=== PATIENT | male | born 1995 | race Caucasian/White ===

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

== ENCOUNTER 2017-07-05 15:44 | Emergency (ER) | payer OTHER ==
[2017-07-05] MEDS ORDERED: ONDANSETRON 4 MG/2 ML VIAL IVP ONE (15:50)
[2017-07-05] MEDS ORDERED: NS 1,000 ML IV ONE (15:50)
--- NOTE | 2017-07-05 15:55 | EDPHY ---
H & P Time Seen by Provider: 07/05/17 15:45 HPI/ROS: CHIEF COMPLAINT: Overdose HISTORY OF PRESENT ILLNESS: The patient is a 22-year-old man who was brought in by EMS. When they arrived he was apneic the. His friends stated that he was is using heroin, cocaine and alcohol. He has black tar heroin and a spoon in his pocket. EMS gave him 2 mg intranasal Narcan and then 4 mg IV Narcan after which she awoke. They suctioned a large amount of food out of his mouth. It is not clear whether not he aspirated. He did not vomit. Currently the patient is without complaints. REVIEW OF SYSTEMS: Constitutional: See HPI EENTM: denies: blurred vision, double vision, nose congestion Respiratory: See HPI Cardiac: denies: chest pain, irregular heart rate, lightheadedness, palpitations Gastrointestinal/Abdominal: denies: abdominal pain, diarrhea, nausea, vomiting, blood streaked stools Genitourinary: denies: dysuria, frequency, hematuria, pain Musculoskeletal: denies: joint pain, muscle pain Skin: denies: lesions, rash, jaundice, bruising Neurological: See HPI now denies: headache, numbness, paresthesia, tingling, dizziness, weakness Hematologic/Lymphatic: denies: blood clots, easy bleeding, easy bruising Immunologic/allergic: denies: HIV/AIDS, transplant EXAM: GENERAL: Well-appearing, thin HEAD: Atraumatic, normocephalic. EYES: Pupils equal round and reactive to light, extraocular movements intact, sclera anicteric, conjunctiva are normal. ENT: TMs normal, nares patent, oropharynx clear without exudates. Moist mucous membranes. NECK: Normal range of motion, supple without lymphadenopathy or JVD. LUNGS: Breath sounds clear to auscultation bilaterally and equal. No wheezes rales or rhonchi. HEART: Regular rate and rhythm without murmurs, rubs or gallops. ABDOMEN: Soft, nontender, normoactive bowel sounds. No guarding, no rebound. No masses appreciated. BACK: No CVA tenderness, no spinal tenderness, step-offs or deformities EXTREMITIES: Normal range of motion, no pitting or edema. No clubbing or cyanosis. NEUROLOGICAL: Cranial nerves II through XII grossly intact. Normal speech, normal gait. 5/5 strength, normal movement in all extremities, normal sensation PSYCH: Alert, slightly confused SKIN: Warm, dry, normal turgor, no visible rashes or lesions. Source: Patient Exam Limitations: No limitations - Medical/Surgical History Hx Asthma: No Hx Chronic Respiratory Disease: No Hx Diabetes: No Hx Cardiac Disease: No Hx Renal Disease: No Hx Cirrhosis: No Hx Alcoholism: No Hx HIV/AIDS: No Hx Splenectomy or Spleen Trauma: No Other PMH: heroin use - Family History Significant Family History: No pertinent family hx - Social History Smoking Status: Current every day smoker Alcohol Use: Heavy Drug Use: Cocaine, Heroin, Marijuana Constitutional: Initial Vital Signs Temperature (C) 36.6 C 07/05/17 16:00 Heart Rate 121 H 07/05/17 16:00 Respiratory Rate 16 07/05/17 16:00 Blood Pressure 130/86 H 07/05/17 16:00 O2 Sat (%) 100 07/05/17 16:00 O2 Delivery Mode Room Air O2 (L/minute) 2 Allergies/Adverse Reactions: No Known Allergies Allergy (Unverified 11/11/16 14:37) Home Medications: Medication Instructions Recorded Ondansetron Odt [Zofran Odt 4 mg 4 mg PO Q4 PRN #14 tab 11/11/16 (RX)] chlordiazePOXIDE HCL 25 mg PO Q3-4PRN PRN #14 capsule 11/11/16 [Chlordiazepoxide HCl] clonIDINE [Catapres (*)] 0.1 mg PO BID #5 tab 11/11/16 Medical Decision Making ED Course/Re-evaluation: 6:30 p.m. I checked on the patient several times. He is easily arousable. He is saturating 100% on nasal cannula. 7:20 p.m. the patient continues to do well. He is awake and alert. He has been seen at a Suboxone clinic in [place] previously and would like to return there. He is asking for Librium to get him through until he can go there tomorrow. I believe that this is reasonable. He agrees not to drink alcohol while he is taking benzos. Differential Diagnosis: Partial list of the Differential diagnosis considered include but were not limited to; heroin abuse, polysubstance abuse, withdrawal and although unlikely based on the history and physical exam, I also considered head injury, infection, salt. I discussed these differential diagnoses and the plan with the patient as well as the usual and expected course. The patient understands that the diagnosis is provisional and that in medicine we are not always correct and that further workup is often warranted. Usual and customary warnings were given. All of the patient's questions were answered. The patient was instructed to return to the emergency department should the symptoms at all worsen or return, otherwise to followup with the physician as we discussed. - Data Points Laboratory Results: Laboratory Results 07/05/17 16:13 07/05/17 16:13 07/05/17 07/05/17 07/05/17 19:25 16:13 16:13 WBC 8.97 10^3/uL 10^3/uL (3.80-9.50) RBC 4.34 10^6/uL L 10^6/uL (4.40-6.38) Hgb 14.1 g/dL g/dL (13.7-17.5) Hct 38.6 % L % (40.0-51.0) MCV 88.9 fL fL (81.5-99.8) MCH 32.5 pg pg (27.9-34.1) MCHC 36.5 g/dL g/dL (32.4-36.7) RDW 11.4 % L % (11.5-15.2) Plt Count 204 10^3/uL 10^3/uL (150-400) MPV 8.8 fL fL (8.7-11.7) Neut % (Auto) 74.6 % H % (39.3-74.2) Lymph % (Auto) 17.6 % % (15.0-45.0) [place] % (Auto) 6.6 % % (4.5-13.0) Eos % (Auto) 0.7 % % (0.6-7.6) Baso % (Auto) 0.2 % L % (0.3-1.7) Nucleat RBC Rel Count 0.0 % % (0.0-0.2) Absolute Neuts (auto) 6.69 10^3/uL H 10^3/uL (1.70-6.50) Absolute Lymphs (auto) 1.58 10^3/uL 10^3/uL (1.00-3.00) Absolute Monos (auto) 0.59 10^3/uL 10^3/uL (0.30-0.80) Absolute Eos (auto) 0.06 10^3/uL 10^3/uL (0.03-0.40) Absolute Basos (auto) 0.02 10^3/uL 10^3/uL (0.02-0.10) Absolute Nucleated RBC 0.00 10^3/uL 10^3/uL (0-0.01) Immature Gran % 0.3 % % (0.0-1.1) Immature Gran # 0.03 10^3/uL 10^3/uL (0.00-0.10) Sodium 136 mEq/L mEq/L (134-144) Potassium 4.9 mEq/L mEq/L (3.5-5.2) Chloride 97 mEq/L mEq/L (97-110) Carbon Dioxide 20 mEq/l L mEq/l (22-31) Anion Gap 19 mEq/L H mEq/L (8-16) BUN 17 mg/dL mg/dL (7-23) Creatinine 1.1 mg/dL mg/dL (0.7-1.3) Estimated GFR > 60 Glucose 173 mg/dL H mg/dL (70-100) Calcium 8.7 mg/dL mg/dL (8.5-10.4) Specimen Hemolysis 158 Urine Opiates Screen NON-NEGATIVE H (NEGATIVE) Urine Barbiturates NEGATIVE (NEGATIVE) Ur Phencyclidine Scrn NEGATIVE (NEGATIVE) Ur Amphetamine Screen NEGATIVE (NEGATIVE) U Benzodiazepines Scrn NON-NEGATIVE H (NEGATIVE) Urine Cocaine Screen NON-NEGATIVE H (NEGATIVE) U Marijuana (THC) Screen NON-NEGATIVE H (NEGATIVE) Ethyl Alcohol 14 mg/dL H mg/dL (0-10) Medications Given: Discontinued Medications Chlordiazepoxide (Librium 25 Mg Prepack#6) 1 btl TAKEHOME EDNOW ONE Stop: 07/05/17 19:25 Last Admin: 07/05/17 19:29 Dose: 1 btl Sodium Chloride (Ns) 1,000 mls @ 0 mls/hr IV EDNOW ONE; Wide Open PRN Reason: Protocol Stop: 07/05/17 15:51 Last Admin: 07/05/17 16:14 Dose: 1,000 mls Ondansetron HCl (Zofran) 4 mg IVP EDNOW ONE Stop: 07/05/17 15:51 Last Admin: 07/05/17 16:14 Dose: 4 mg Departure - Departure Disposition: Home, Routine, Self-Care Clinical Impression: Cocaine abuse, Alcohol abuse Heroin overdose Qualifiers: Encounter type: initial encounter Injury intent: accidental or unintentional Qualified Code(s): T40.1X1A - Poisoning by heroin, accidental (unintentional), initial encounter Condition: Fair Instructions: Chlordiazepoxide/Clidinium (By mouth), Cocaine Abuse (ED), Narcotic Abuse (ED), Abuse of Alcohol (ED) Referrals: Patient,NotPresent [Primary Care Provider] - As per Instructions [facility],. [Clinic] - As per Instructions
[2017-07-05 16:20] LABS: % IMMATURE GRANULYOCYTES 0.3 % (0.0-1.1); ABSOLUTE IMMATURE GRANULOCYTES 0.03 10^3/uL (0.00-0.10); ADD DIFF? NO; ADD MORPH? NO; ADD SCAN? NO; ATYPICAL LYMPHOCYTE FLAG 0 (0-99); FRAGMENT RBC FLAG 10 (0-99); HEMATOCRIT 38.6 % (40.0-51.0); HEMOGLOBIN 14.1 g/dL (13.7-17.5); LEFT SHIFT FLG 0 (0-99); LIPEMIA HEMOLYSIS FLAG 90 (0-99); MEAN CELL HEMOGLOBIN 32.5 pg (27.9-34.1); MEAN CELL HEMOGLOBIN CONCENTR. 36.5 g/dL (32.4-36.7); MEAN CELL VOLUME 88.9 fL (81.5-99.8); MEAN PLATELET VOLUME 8.8 fL (8.7-11.7); PLATELET CLUMPS FLAG 20 (0-99); PLATELET COUNT 204 10^3/uL (150-400); RED BLOOD CELL COUNT 4.34 10^6/uL (4.40-6.38); RED CELL DISTRIBUTION WIDTH 11.4 % (11.5-15.2)
[2017-07-05 16:34] LABS: ANION GAP 19 mEq/L (8-16); CALCIUM 8.7 mg/dL (8.5-10.4); CARBON DIOXIDE 20 mEq/l (22-31); CHLORIDE 97 mEq/L (97-110); CREATININE 1.1 mg/dL (0.7-1.3); ETHANOL SERUM 14 mg/dL (0-10); GLOMERULAR FILTRATION RATE > 60; GLUCOSE 173 mg/dL (70-100); POTASSIUM 4.9 mEq/L (3.5-5.2); SODIUM 136 mEq/L (134-144); SPECIMEN HEMOLYSIS 158
[2017-07-05 18:51] VITALS: PULSE 90; RESP 16
[2017-07-05] MEDS ORDERED: CHLORDIAZEPOXIDE 25MG PREPK#6 BTL TAKEHOME ONE (19:24)
[2017-07-05 19:37] VITALS: BP 118/63; TEMP 97.9; O2SAT 95
== END 2017-07-05 19:37 | disposition home or self-care (01) ==
LOC: EDUNIT#
PROC: 3E0337Z Introduction of Electrolytic and Water Balance Substance into Peripheral Vein, Percutaneous Approach (ICD-10-PCS; principal; 2017-07-05)
DX: T40.1X1A Poisoning by heroin, accidental (unintentional), initial encounter (principal); F10.10 Alcohol abuse, uncomplicated; F17.200 Nicotine dependence, unspecified, uncomplicated; E86.9 Volume depletion, unspecified
CPT/HCPCS: 80305; 96374; G0480; J2405

== ENCOUNTER 2017-11-26 18:55 | Emergency (ER) | payer OTHER ==
[2017-11-26 19:05] VITALS: BP 127/88
== END 2017-11-26 19:53 | disposition left against medical advice (07) ==
DX: Z53.21 Procedure and treatment not carried out due to patient leaving prior to being seen by health care provider (principal)

== ENCOUNTER 2018-01-15 13:21 | Emergency (ER) | payer OTHER ==
[2018-01-15] MEDS ORDERED: NS 1,000 ML IV ONE (13:27)
--- NOTE | 2018-01-15 13:37 | EDPHY ---
H & P Stated Complaint: Syncope Time Seen by Provider: 01/15/18 13:27 HPI/ROS: CHIEF COMPLAINT: Syncope HISTORY OF PRESENT ILLNESS: 22-year-old male presents after syncopal episode. He was walking outside just prior to arrival and began to feel dizzy. He then had a syncopal episode. He woke up immediately and stood up and then had a another syncopal episode. A bystander helped him and then called 911. He now feels back to normal. He had a few shots of alcohol this morning and some marijuana. Denies injury from the syncopal episode. REVIEW OF SYSTEMS: complete 10 point ROS negative except at noted in the HPI - Medical/Surgical History Hx Asthma: No Hx Chronic Respiratory Disease: No Hx Diabetes: No Hx Cardiac Disease: No Hx Renal Disease: No Hx Cirrhosis: No Hx Alcoholism: No Hx HIV/AIDS: No Hx Splenectomy or Spleen Trauma: No Other PMH: heroin use, ETOH - Social History Smoking Status: Current every day smoker - Physical Exam Exam: General Appearance: Alert, pleasant Eyes: Pupils equal and round, no conjunctival pallor ENT, Mouth: Mucous membranes moist Neck: Normal inspection, nontender, range of motion without pain Respiratory: Lungs are clear to auscultation Cardiovascular: Regular rate and rhythm Gastrointestinal: Abdomen is soft and nontender Back: No midline or CVA tenderness Neurological: Alert, oriented x3, cranial nerves II through XII intact, motor 5 /5, sensory intact to light touch Skin: Warm and dry, no abrasions or lacerations Extremities: Nontender, no swelling Psychiatric: Flat affect Constitutional: Initial Vital Signs Temperature (C) 36.8 C 01/15/18 13:30 Heart Rate 76 01/15/18 13:30 Respiratory Rate 12 01/15/18 13:30 Blood Pressure 115/69 01/15/18 13:30 O2 Sat (%) 96 01/15/18 13:30 O2 Delivery Mode Room Air Allergies/Adverse Reactions: No Known Allergies Allergy (Unverified 11/26/17 19:02) Home Medications: Medication Instructions Recorded NK [No Known Home Meds] 11/26/17 Medical Decision Making - Diagnostics EKG Interpretation: EKG interpreted by me reveals normal sinus rhythm, rate 62, no ST or T segment changes. Interpretation normal EKG. ED Course/Re-evaluation: this pt presents after a syncopal episode, most likely vasovagal episode. Initial vital signs are normal and stat EKG reveals no evidence of ischemia or dysrhythmia. IV normal saline 1 L given. Laboratory tests are normal. After IV fluids, he is able to walk with a steady gait without dizziness. Safe and stable for discharge home. Warning signs discussed. Differential Diagnosis: Differential diagnosis includes though is not limited to cardiac dysrhythmia, CVA, TIA, GI bleed, sepsis, hypoglycemia. - Data Points Laboratory Results: Laboratory Results 01/15/18 13:21 01/15/18 13:21 01/15/18 01/15/18 01/15/18 13:55 13:55 13:21 WBC RBC Hgb Hct MCV MCH MCHC RDW Plt Count MPV Neut % (Auto) Lymph % (Auto) [place] % (Auto) Eos % (Auto) Baso % (Auto) Nucleat RBC Rel Count Absolute Neuts (auto) Absolute Lymphs (auto) Absolute Monos (auto) Absolute Eos (auto) Absolute Basos (auto) Absolute Nucleated RBC Immature Gran % Immature Gran # Sodium 140 mEq/L mEq/L (135-145) Potassium 3.7 mEq/L mEq/L (3.3-5.0) Chloride 101 mEq/L mEq/L (97-110) Carbon Dioxide 21 mEq/l L mEq/l (22-31) Anion Gap 18 mEq/L H mEq/L (8-16) BUN 9 mg/dL mg/dL (7-23) Creatinine 0.9 mg/dL mg/dL (0.7-1.3) Estimated GFR > 60 Glucose 107 mg/dL H mg/dL (70-100) Calcium 10.0 mg/dL mg/dL (8.5-10.4) POC Troponin I 0.00 ng/mL ng/mL (0.00-0.08) Ethyl Alcohol 27 mg/dL H mg/dL (0-10) 01/15/18 13:21 WBC 9.77 10^3/uL H 10^3/uL (3.80-9.50) RBC 5.26 10^6/uL 10^6/uL (4.40-6.38) Hgb 17.0 g/dL g/dL (13.7-17.5) Hct 48.2 % % (40.0-51.0) MCV 91.6 fL fL (81.5-99.8) MCH 32.3 pg pg (27.9-34.1) MCHC 35.3 g/dL g/dL (32.4-36.7) RDW 12.5 % % (11.5-15.2) Plt Count 307 10^3/uL 10^3/uL (150-400) MPV 9.2 fL fL (8.7-11.7) Neut % (Auto) 63.4 % % (39.3-74.2) Lymph % (Auto) 30.6 % % (15.0-45.0) [place] % (Auto) 5.3 % % (4.5-13.0) Eos % (Auto) 0.2 % L % (0.6-7.6) Baso % (Auto) 0.3 % % (0.3-1.7) Nucleat RBC Rel Count 0.0 % % (0.0-0.2) Absolute Neuts (auto) 6.19 10^3/uL 10^3/uL (1.70-6.50) Absolute Lymphs (auto) 2.99 10^3/uL 10^3/uL (1.00-3.00) Absolute Monos (auto) 0.52 10^3/uL 10^3/uL (0.30-0.80) Absolute Eos (auto) 0.02 10^3/uL L 10^3/uL (0.03-0.40) Absolute Basos (auto) 0.03 10^3/uL 10^3/uL (0.02-0.10) Absolute Nucleated RBC 0.00 10^3/uL 10^3/uL (0-0.01) Immature Gran % 0.2 % % (0.0-1.1) Immature Gran # 0.02 10^3/uL 10^3/uL (0.00-0.10) Sodium Potassium Chloride Carbon Dioxide Anion Gap BUN Creatinine Estimated GFR Glucose Calcium POC Troponin I Ethyl Alcohol Medications Given: Discontinued Medications Sodium Chloride (Ns) 1,000 mls @ 0 mls/hr IV EDNOW ONE; Wide Open PRN Reason: Protocol Stop: 01/15/18 13:28 Last Admin: 01/15/18 13:48 Dose: 1,000 mls Point of Care Test Results: Chemistry 01/15/18 13:55 POC Troponin I 0.00 ng/mL ng/mL (0.00-0.08) Departure - Departure Disposition: Home, Routine, Self-Care Clinical Impression: Syncope Qualifiers: Syncope type: vasovagal syncope Qualified Code(s): R55 - Syncope and collapse Condition: Good Instructions: Syncope (ED) Additional Instructions: Drink plenty of water. Return for recurrent symptoms or any concerns. Referrals: Onesimo Temple MD [Medical Doctor] - Follow Up Only If Needed
[2018-01-15 13:46] LABS: PLATELET COUNT 307 10^3/uL (150-400)
--- NOTE | 2018-01-15 14:08 | CPEKG ---
Heart Rate: 62 RR Interval: 968 P-R Interval: 140 QRSD Interval: 102 QT Interval: 416 QTC Interval: 423 P Hazel: 62 QRS Hazel: 91 T Wave Hazel: 42 EKG Severity - OTHERWISE NORMAL ECG - EKG Impression: SINUS RHYTHM EKG Impression: BORDERLINE RIGHT AXIS DEVIATION EKG Impression: LVH Electronically Signed By: Beckie Lang 15-Jan-2018 20:32:20
[2018-01-15 14:54] VITALS: BP 123/72
== END 2018-01-15 14:57 | disposition home or self-care (01) ==
LOC: EDUNIT#
DX: R55 Syncope and collapse (principal); F17.200 Nicotine dependence, unspecified, uncomplicated; E86.9 Volume depletion, unspecified
CPT/HCPCS: 84484-PO; G0480

== ENCOUNTER 2018-01-23 03:42 | Emergency (ER) | payer OTHER ==
--- NOTE | 2018-01-23 03:52 | EDPHY ---
H & P Time Seen by Provider: 01/23/18 03:47 HPI/ROS: Chief Complaint: Intoxication, aggressive behavior HPI: 22-year-old male found laying down outside of a business near the [facility]. On arrival the patient appeared to be sleeping. EMS applied a sternal rub the patient became immediately awake and agitated. Patient has been combative insulting and profane with EMS. He is unwilling to comply with care or examination. Patient is being brought in handcuffs with the [place] [employer]. He denies past medical history. Denies drinking alcohol or any other drug use. He does smell of alcohol. Denies falls or head injury. Is answering questions in full sentences. Awake and alert. No respiratory distress. ROS: 10 point Review of Systems is negative except as noted in the HPI. PMH: Denies Social History: Denies smoking, denies alcohol, denies other drug use Family History: non-contributory Physical Exam: Gen: Awake, Alert, No Distress, insulting and profane HEENT: Atraumatic Nose: no rhinorrhea Eyes: PERRLA, EOMI Mouth: Moist mucosa Neck: Supple, no JVD Chest: nontender, lungs clear to auscultation Heart: S1, S2 normal, no murmur Abd: Soft, non-tender, no guarding Back: no CVA tenderness, no midline tenderness Ext: no edema, non-tender Skin: no rash Neuro: CN II-XII intact, Sensation grossly intact, Strength 5/5 in bilateral upper and lower extremities Medical Decision Making ED Course/Re-evaluation: 22-year-old male brought in by EMS for agitation after being found down outside. Patient has been aggressive and agitated and none compliant with examination. He is no obvious signs of trauma. He is awake and alert and answering questions appropriately but is profane and noncooperative. A not see any evidence of acute traumatic injury. Police department would like to take him to [facility]. At this point I believe he is medically cleared. No evidence of trauma or acute medical process. Departure - Departure Disposition: Law Enforcement/Court/Nursing Home Clinical Impression: Alcoholic intoxication Condition: Good Instructions: Alcohol Intoxication (ED) Additional Instructions: MEDICALLY CLEAR FOR PENITENTIARY
[2018-01-23 03:58] VITALS: BP 123/99
[2018-01-23] MEDS ORDERED: HALOPERIDOL LACT 5 MG/ML INJ IM ONE (03:58)
[2018-01-23] MEDS ORDERED: LORazepam 2 MG/ML INJ IM ONE (03:58)
== END 2018-01-23 04:40 ==
LOC: MERGE 03:42
DX: F10.129 Alcohol abuse with intoxication, unspecified (principal)
CPT/HCPCS: J1630; J2060